=== PATIENT | female | born 1970 ===

== ENCOUNTER 2017-05-21 12:38 | Emergency (ER) | payer OTHER ==
[2017-05-21] MEDS ORDERED: APAP/HYDROCODONE 325/5 TAB PO ONE (12:58)
[2017-05-21] MEDS ORDERED: KETOROLAC TROMETHAMINE 30 MG/ML SOL IM ONE (12:58)
[2017-05-21] MEDS ORDERED: CYCLOBENZAPRINE 10 MG TAB PO ONE (12:59)
[2017-05-21] MEDS ORDERED: APAP/HYDROCODONE 325/5 TAB ONE (13:01)
[2017-05-21] MEDS ORDERED: KETOROLAC TROMETHAMINE 30 MG/ML SOL ONE (13:01)
[2017-05-21] MEDS ORDERED: CYCLOBENZAPRINE 10 MG TAB ONE (13:01)
[2017-05-21 13:10] VITALS: RESP 18; TEMP 97
[2017-05-21 13:42] VITALS: BP 123/57; PULSE 66; O2SAT 98
== END 2017-05-21 13:36 | disposition home or self-care (01) ==
LOC: ED 12:38
DX: M54.5 Low back pain (principal)
CPT/HCPCS: 99283 ×2; J1885; 96372